=== PATIENT | female | born 1930 | race Caucasian/White ===

== ENCOUNTER 2020-03-23 11:45 | Emergency (ER) | payer OTHER ==
[~2020-03-23] VITALS: Ht 160 cm; Wt 49.6 kg
--- NOTE | 2020-03-23 11:45 | NUR ---
PT BROUGHT IN BE [facility] FROM 10 FOR CHIEF COMPLAINT OF STROKE LIKE SYMPTOMS- SLURRED SPEECH & EXPRESSICE APHASIA STARTING BETWEEN 4-6 AM THIS MORNING. NO DEFICITS IN STRENGTH OR SENSATION. HX AFIB AND BELLS PALSY.
--- NOTE | 2020-03-23 11:47 | NUR ---
TO CT FROM ER VIA [facility].
[2020-03-23 12:05] LABS: BASOPHILS # (AUTO) 0.04 x10^3/uL (0-0.1); BASOPHILS % (AUTO) 1 % (0-1); EOSINOPHILS # (AUTO) 0.12 x10^3/uL (0-0.4); EOSINOPHILS % (AUTO) 2 % (1-7); LYMPHOCYTES # (AUTO) 1.38 x10^3/uL (1-3.4); LYMPHOCYTES % (AUTO) 18 % (22-44); MD NO; MEAN CORPUSCULAR HEMOGLOBIN 31.2 pg (27.0-34.8); MEAN CORPUSCULAR HGB CONC 32.9 g/dL (32.4-35.8); MEAN CORPUSCULAR VOLUME 94.8 fL (80-100); MEAN PLATELET VOLUME 8.2 fL (7.4-10.4); MONOCYTES # (AUTO) 0.65 x10^3/uL (0.2-0.8); MONOCYTES % (AUTO) 9 % (2-9); NEUTROPHILS % (AUTO) 71 % (42-75); PLATELET COUNT 383 x10^3/uL (130-400); RED BLOOD COUNT 4.92 x10^6/uL (3.82-5.3); RED CELL DISTRIBUTION WIDTH 14.1 % (9.6-15.2)
[2020-03-23 12:13] LABS: PROTHROMBIN TIME 10.6 Seconds (9.6-11.5)
[2020-03-23] MEDS ORDERED: OMNIPAQUE 350 MG/ML, 75ML BOTTLE ONE (12:20)
--- NOTE | 2020-03-23 12:45 | NUR ---
CONSULT TO NEURO
[2020-03-23 13:20] VITALS: BP 139/82
--- NOTE | 2020-03-23 13:23 | NUR ---
PT RESTING IN BED
[2020-03-23] MEDS ORDERED: SODIUM CHLORIDE 0.9% 1,000ML IVBOLUS ONE (13:30)
--- NOTE | 2020-03-23 14:00 | NUR ---
Transfer to [facility] [place] discussed with pt and family.
--- NOTE | 2020-03-23 14:01 | NUR ---
REPORT TO PATRIA ESPINOZA RN
== END 2020-03-23 14:13 | disposition short-term general hospital (02) ==
LOC: MERGE 11:45 → EDBD 11:45 → ED 13:09
DX: I63.312 Cerebral infarction due to thrombosis of left middle cerebral artery (principal); I65.22 Occlusion and stenosis of left carotid artery; R47.01 Aphasia; I48.91 Unspecified atrial fibrillation; E78.5 Hyperlipidemia, unspecified; R47.81 Slurred speech
CPT/HCPCS: 36415; 70450; 70496; 70498; 80047; 85025; 85610; 85730; 93005; 99291; J7030; Q9967

== ENCOUNTER 2020-05-08 21:18 | Inpatient (IN) | payer MEDICARE, OTHER ==
[~2020-05-08] VITALS: Ht 152.4 cm; Wt 46.5 kg
--- NOTE | 2020-05-08 21:30 | NUR ---
BIBA for c/o bilateral ankle swelling and pain. Pt reports swelling for approx a week, reports hx of a fib not on anticoagulants. Pt changed into gown, attached to monitors, and provided with warm blankets. NADN, vss, call ordaz in reach, bed locked in lowest position, belongings placed in pt belonging bag
[2020-05-08] MEDS ORDERED: DILTIAZEM 5 MG/ML, 5ML ONE (21:47)
[2020-05-08] MEDS ORDERED: DILTIAZEM 5 MG/ML, 5ML IVPush ONE (22:00)
--- NOTE | 2020-05-08 22:00 | NUR ---
10 mg iv cardizem administered, HR improved from 120s to 80-90s following administration
--- NOTE | 2020-05-08 22:08 | NUR ---
Code Neuro called @ 2202 Called Neurology @ 2204 Neurology called back @ 2205
[2020-05-08 22:18] LABS: MEAN CORPUSCULAR HEMOGLOBIN 30.3 pg (27.0-34.8); MEAN CORPUSCULAR HGB CONC 32.1 g/dL (32.4-35.8); MEAN CORPUSCULAR VOLUME 94.3 fL (80-100); MEAN PLATELET VOLUME 8.4 fL (7.4-10.4); PLATELET COUNT 342 x10^3/uL (130-400); RED BLOOD COUNT 4.34 x10^6/uL (3.82-5.3); RED CELL DISTRIBUTION WIDTH 14.6 % (9.6-15.2)
[2020-05-08 22:29] LABS: INTERNATIONAL NORMALIZED RATIO 1.07 (0.93-1.1)
[2020-05-08 22:30] LABS: ALBUMIN 2.6 g/dL (3.4-5.0); ANION GAP 8 mmol/L (5-15); CHLORIDE 101 mmol/L (98-107); CREATININE 1.27 mg/dL (0.55-1.02)
[2020-05-08] MEDS ORDERED: OMNIPAQUE 350 MG/ML, 75ML BOTTLE ONE (22:30)
[2020-05-08 22:34] LABS: TROPONIN I 0.055 ng/mL (0.000-0.045)
[2020-05-08 22:47] LABS: MD YES
[2020-05-08 22:50] LABS: BAND#(MANUAL) 0.11 x10^3/uL; BANDS%(MANUAL) 1 % (0-7); EOS#(MANUAL) 2.38 x10^3/uL (0.0-0.4); EOS% (MANUAL) 22 % (1-7); LYMPH#(MANUAL) 1.19 x10^3/uL (1-3.4); LYMPHS% (MANUAL) 11 % (22-44); MONOS#(MANUAL) 0.86 x10^3/uL (0.3-2.7); MONOS% (MANUAL) 8 % (2-9); SEG#(MANUAL) 6.26 x10^3/uL (1.8-6.8); SEGS% (MANUAL) 58 % (42-75)
[2020-05-08 22:51] LABS: <PLATELET ESTIMATE> ADEQUATE; <PLT MORPHOLOGY> NORMAL PLT MORPH; <RBC MORPHOLOGY> NORMAL
--- NOTE | 2020-05-09 00:36 | NUR ---
REPORT TO SERGE FRENCH TO ASSUME CARE UPON TRANSFER
[2020-05-09 01:10] LABS: TROPONIN I 0.053 ng/mL (0.000-0.045)
[2020-05-09 01:12] VITALS: BP 121/68
[2020-05-09] MEDS: HEPARIN 5,000 UNITS/ML, 1ML SQ SCH ×3 (01:51→18:13)
[2020-05-09] MEDS: DILTIAZEM 30 MG TABLET PO SCH ×3 (01:51→14:00)
[2020-05-09 05:11] LABS: BASOPHILS # (AUTO) 0.06 x10^3/uL (0-0.1); BASOPHILS % (AUTO) 1 % (0-1); EOSINOPHILS # (AUTO) 1.35 x10^3/uL (0-0.4); EOSINOPHILS % (AUTO) 14 % (1-7); LYMPHOCYTES # (AUTO) 1.67 x10^3/uL (1-3.4); LYMPHOCYTES % (AUTO) 18 % (22-44); MD NO; MEAN CORPUSCULAR HEMOGLOBIN 30.2 pg (27.0-34.8); MEAN CORPUSCULAR VOLUME 94.3 fL (80-100); MEAN PLATELET VOLUME 8.3 fL (7.4-10.4); MONOCYTES # (AUTO) 0.62 x10^3/uL (0.2-0.8); MONOCYTES % (AUTO) 7 % (2-9); NEUTROPHILS # (AUTO) 5.72 x10^3/uL (1.8-6.8); NEUTROPHILS % (AUTO) 61 % (42-75); PLATELET COUNT 326 x10^3/uL (130-400); RED BLOOD COUNT 4.08 x10^6/uL (3.82-5.3); RED CELL DISTRIBUTION WIDTH 14.5 % (9.6-15.2)
[2020-05-09 05:21] LABS: ANION GAP 7 mmol/L (5-15); CHLORIDE 103 mmol/L (98-107); CREATININE 1.13 mg/dL (0.55-1.02)
[2020-05-09 05:26] LABS: TROPONIN I 0.044 ng/mL (0.000-0.045)
[2020-05-09] MEDS ORDERED: ATOR-2 PO (05:47)
[2020-05-09] MEDS ORDERED: LEVO25TA2 PO (05:47)
[2020-05-09] MEDS ORDERED: FLEC50TA25 PO (05:47)
[2020-05-09] MEDS ORDERED: LISI-420 PO (05:47)
[2020-05-09] MEDS ORDERED: METO25TA4 PO (05:47)
[2020-05-09] MEDS ORDERED: ASPI-191 PO (05:47)
[2020-05-09] MEDS ORDERED: LEVO25CA2 PO (05:47)
[2020-05-09 07:22] VITALS: BP 114/70
[2020-05-09] MEDS: SENNA/DOCUSATE TABLET PO SCH (08:25)
[2020-05-09 13:28] VITALS: BP 145/78
[2020-05-09] MEDS ORDERED: ASPIRIN 81 MG TABLET EC PO ONE (15:00)
[2020-05-09] MEDS ORDERED: ACETAMINOPHEN 325 MG TABLET PO PRN (15:30)
[2020-05-09] MEDS: FLECAINIDE 50MG TABLET PO SCH (21:06)
[2020-05-09] MEDS: METOPROLOL TARTRATE 25 MG TAB PO SCH (21:06)
[2020-05-09] MEDS: ATORVASTATIN 80 MG TABLET PO SCH (21:06)
[2020-05-09 21:11] VITALS: BP 158/66
[2020-05-10 00:50] VITALS: BP 145/75
[2020-05-10] MEDS: HEPARIN 5,000 UNITS/ML, 1ML SQ SCH ×3 (01:41→18:28)
[2020-05-10 04:06] VITALS: BP 138/79
[2020-05-10] MEDS: LEVOTHYROXINE 25 MCG TABLET PO SCH (05:34)
[2020-05-10 07:31] VITALS: BP 134/89
--- NOTE | 2020-05-10 07:37 | NUR ---
Patient would benefit from ongoing skilled OIL SCOUT services in SNF Addendum: 05/10/20 at 0737 by VANESSA RUIZ Amended: Links added.
[2020-05-10 09:38] VITALS: BP 113/70
[2020-05-10] MEDS: FLECAINIDE 50MG TABLET PO SCH ×2 (09:41→21:27)
[2020-05-10] MEDS: METOPROLOL TARTRATE 25 MG TAB PO SCH ×2 (09:42→21:29)
[2020-05-10] MEDS: SENNA/DOCUSATE TABLET PO SCH (09:43)
[2020-05-10] MEDS: LISINOPRIL 20 MG TABLET PO SCH (09:43)
[2020-05-10] MEDS: ASPIRIN 81 MG TABLET CHEW PO SCH (11:36)
[2020-05-10 12:54] VITALS: BP 104/69
[2020-05-10 18:55] VITALS: BP 99/65
[2020-05-10] MEDS: ATORVASTATIN 80 MG TABLET PO SCH (21:27)
[2020-05-11 00:40] VITALS: BP 143/91
[2020-05-11] MEDS: HEPARIN 5,000 UNITS/ML, 1ML SQ SCH ×3 (02:43→18:09)
[2020-05-11] MEDS: LEVOTHYROXINE 25 MCG TABLET PO SCH (06:08)
[2020-05-11 07:19] VITALS: BP 133/82
[2020-05-11] MEDS: FLECAINIDE 50MG TABLET PO SCH ×2 (10:24→21:21)
[2020-05-11] MEDS: SENNA/DOCUSATE TABLET PO SCH (10:25)
[2020-05-11] MEDS: CLOPIDOGREL 75 MG TABLET PO SCH (10:25)
[2020-05-11] MEDS: ASPIRIN 81 MG TABLET CHEW PO SCH (10:25)
[2020-05-11] MEDS: LISINOPRIL 20 MG TABLET PO SCH (10:25)
[2020-05-11 10:27] VITALS: BP 106/68
[2020-05-11 12:36] VITALS: BP 112/67
[2020-05-11 14:01] VITALS: BP 139/92
[2020-05-11 20:55] VITALS: BP 125/73
[2020-05-11] MEDS: METOPROLOL TARTRATE 25 MG TAB PO SCH (21:21)
[2020-05-11] MEDS: ATORVASTATIN 80 MG TABLET PO SCH (21:21)
[2020-05-12 02:01] VITALS: BP 114/69
[2020-05-12] MEDS: HEPARIN 5,000 UNITS/ML, 1ML SQ SCH ×3 (02:36→18:22)
[2020-05-12 06:06] LABS: ALANINE AMINOTRANSFERASE 231 U/L (12-78); ALBUMIN 2.1 g/dL (3.4-5.0); ANION GAP 6 mmol/L (5-15); CALCIUM 8.7 mg/dL (8.5-10.1); CHLORIDE 104 mmol/L (98-107); CREATININE 0.83 mg/dL (0.55-1.02)
[2020-05-12 06:08] LABS: ALKALINE PHOSPHATASE 499 U/L (45-117); BILIRUBIN,TOTAL 1.2 mg/dL (0.2-1.0); TOTAL PROTEIN 5.9 g/dL (6.4-8.2)
[2020-05-12] MEDS: LEVOTHYROXINE 25 MCG TABLET PO SCH (06:15)
[2020-05-12 07:51] VITALS: BP 127/79
[2020-05-12] MEDS: CLOPIDOGREL 75 MG TABLET PO SCH (09:00)
[2020-05-12] MEDS: SENNA/DOCUSATE TABLET PO SCH (10:26)
[2020-05-12] MEDS: FLECAINIDE 50MG TABLET PO SCH ×2 (10:27→20:52)
[2020-05-12] MEDS: METOPROLOL TARTRATE 25 MG TAB PO SCH ×2 (10:27→20:52)
[2020-05-12] MEDS: LISINOPRIL 20 MG TABLET PO SCH (10:27)
[2020-05-12] MEDS: ASPIRIN 81 MG TABLET CHEW PO SCH (10:27)
[2020-05-12] MEDS: POTASSIUM CHLORIDE 20 MEQ TAB.ER.PRT PO SCH (11:12)
[2020-05-12 13:43] VITALS: BP 116/74
[2020-05-12 19:42] VITALS: BP 125/77
[2020-05-13 00:18] VITALS: BP 129/81
[2020-05-13] MEDS: HEPARIN 5,000 UNITS/ML, 1ML SQ SCH ×3 (02:24→17:13)
[2020-05-13 05:07] LABS: MEAN CORPUSCULAR HEMOGLOBIN 30.3 pg (27.0-34.8); MEAN CORPUSCULAR VOLUME 94.4 fL (80-100); MEAN PLATELET VOLUME 8.3 fL (7.4-10.4); PLATELET COUNT 327 x10^3/uL (130-400); RED BLOOD COUNT 4.12 x10^6/uL (3.82-5.3); RED CELL DISTRIBUTION WIDTH 14.6 % (9.6-15.2)
[2020-05-13 05:18] LABS: ALBUMIN 2.2 g/dL (3.4-5.0); ANION GAP 7 mmol/L (5-15); CALCIUM 8.7 mg/dL (8.5-10.1); CHLORIDE 104 mmol/L (98-107)
[2020-05-13 05:22] LABS: ALANINE AMINOTRANSFERASE 273 U/L (12-78); ALKALINE PHOSPHATASE 522 U/L (45-117)
[2020-05-13 05:50] LABS: MD YES
[2020-05-13 05:52] LABS: LYMPH#(MANUAL) 1.63 x10^3/uL (1-3.4); LYMPHS% (MANUAL) 19 % (22-44); MONOS#(MANUAL) 0.34 x10^3/uL (0.3-2.7); MONOS% (MANUAL) 4 % (2-9); MYELOCYTES# (MANUAL) 2.24 x10^3/uL (0-0); MYELOCYTES% (MANUAL) 26 % (0-0); SEG#(MANUAL) 4.39 x10^3/uL (1.8-6.8); SEGS% (MANUAL) 51 % (42-75)
[2020-05-13 05:53] LABS: <PLATELET ESTIMATE> ADEQUATE; <PLT MORPHOLOGY> NORMAL PLT MORPH; <RBC MORPHOLOGY> NORMAL
[2020-05-13] MEDS: LEVOTHYROXINE 25 MCG TABLET PO SCH (06:09)
[2020-05-13 07:03] VITALS: BP 115/79
[2020-05-13] MEDS: CLOPIDOGREL 75 MG TABLET PO SCH (08:31)
[2020-05-13] MEDS: ASPIRIN 81 MG TABLET CHEW PO SCH (08:31)
[2020-05-13] MEDS: METOPROLOL TARTRATE 25 MG TAB PO SCH ×2 (08:31→20:31)
[2020-05-13] MEDS: LISINOPRIL 20 MG TABLET PO SCH (08:31)
[2020-05-13] MEDS: POTASSIUM CHLORIDE 20 MEQ TAB.ER.PRT PO SCH (08:32)
[2020-05-13] MEDS: SENNA/DOCUSATE TABLET PO SCH (08:32)
[2020-05-13] MEDS: FLECAINIDE 50MG TABLET PO SCH ×2 (08:32→20:31)
[2020-05-13] MEDS ORDERED: INSTRUCTION SEE COMMENTS XX PRN (10:00)
[2020-05-13] MEDS ORDERED: PHARMACY INSTRUCTION MC PRN (10:00)
[2020-05-13 12:22] LABS: INTERNATIONAL NORMALIZED RATIO 0.99 (0.93-1.1); PROTHROMBIN TIME 10.2 Seconds (9.6-11.5)
[2020-05-13 13:27] VITALS: BP 129/78
[2020-05-13 18:11] VITALS: BP 113/68
[2020-05-13] MEDS: MELATONIN 3 MG TABLET PO SCH (20:31)
[2020-05-14 00:30] VITALS: BP 115/73
[2020-05-14] MEDS: HEPARIN 5,000 UNITS/ML, 1ML SQ SCH ×2 (02:07→08:33)
[2020-05-14 05:31] LABS: ALANINE AMINOTRANSFERASE 276 U/L (12-78); ALBUMIN 2.2 g/dL (3.4-5.0); ANION GAP 6 mmol/L (5-15); CALCIUM 8.7 mg/dL (8.5-10.1); CHLORIDE 102 mmol/L (98-107)
[2020-05-14 05:33] LABS: ALKALINE PHOSPHATASE 501 U/L (45-117); BILIRUBIN,TOTAL 0.8 mg/dL (0.2-1.0); TOTAL PROTEIN 6.1 g/dL (6.4-8.2)
[2020-05-14] MEDS: LEVOTHYROXINE 25 MCG TABLET PO SCH (05:54)
[2020-05-14 07:15] VITALS: BP 153/71
[2020-05-14] MEDS: CLOPIDOGREL 75 MG TABLET PO SCH (08:31)
[2020-05-14] MEDS: METOPROLOL TARTRATE 25 MG TAB PO SCH ×2 (08:31→21:47)
[2020-05-14] MEDS: LISINOPRIL 20 MG TABLET PO SCH (08:31)
[2020-05-14] MEDS: SENNA/DOCUSATE TABLET PO SCH (08:32)
[2020-05-14] MEDS: POTASSIUM CHLORIDE 20 MEQ TAB.ER.PRT PO SCH (08:32)
[2020-05-14] MEDS: ASPIRIN 81 MG TABLET CHEW PO SCH (08:32)
[2020-05-14] MEDS: FLECAINIDE 50MG TABLET PO SCH ×2 (08:32→21:47)
[2020-05-14] MEDS ORDERED: ENOXAPARIN 40 MG/0.4 ML SQ SCH (10:00)
[2020-05-14] MEDS ORDERED: METO25TA35 PO (11:15)
[2020-05-14] MEDS ORDERED: CLOP75TA PO (11:15)
[2020-05-14] MEDS ORDERED: ASPI-191 PO (11:26)
[2020-05-14 14:15] VITALS: BP 119/74
[2020-05-14 18:35] VITALS: BP 129/83
[2020-05-14] MEDS: MELATONIN 3 MG TABLET PO SCH (21:47)
[2020-05-14] MEDS: ENOXAPARIN 30 MG/0.3 ML SQ SCH (21:47)
[2020-05-15 00:15] VITALS: BP 131/75
[2020-05-15] MEDS: LEVOTHYROXINE 25 MCG TABLET PO SCH (06:08)
[2020-05-15 08:00] VITALS: BP 145/73
[2020-05-15 08:48] VITALS: BP 147/83
[2020-05-15] MEDS: FLECAINIDE 50MG TABLET PO SCH (09:25)
[2020-05-15] MEDS: ASPIRIN 81 MG TABLET CHEW PO SCH (09:25)
[2020-05-15] MEDS: METOPROLOL TARTRATE 25 MG TAB PO SCH (09:26)
[2020-05-15] MEDS: LISINOPRIL 20 MG TABLET PO SCH (09:26)
[2020-05-15] MEDS: CLOPIDOGREL 75 MG TABLET PO SCH (09:26)
[2020-05-15] MEDS: SENNA/DOCUSATE TABLET PO SCH (09:27)
[2020-05-15 12:25] LABS: ALANINE AMINOTRANSFERASE 317 U/L (12-78); ALBUMIN 2.3 g/dL (3.4-5.0); ANION GAP 7 mmol/L (5-15); CALCIUM 8.6 mg/dL (8.5-10.1); CHLORIDE 98 mmol/L (98-107)
[2020-05-15 12:27] LABS: ALKALINE PHOSPHATASE 483 U/L (45-117); BILIRUBIN,TOTAL 0.9 mg/dL (0.2-1.0); TOTAL PROTEIN 6.6 g/dL (6.4-8.2)
[2020-05-15 13:50] VITALS: BP 93/59
[2020-05-15 19:25] VITALS: BP 131/82
[2020-05-15] MEDS: MELATONIN 3 MG TABLET PO SCH (19:39)
[2020-05-15] MEDS: METOPROLOL TARTRATE 50 MG TAB PO SCH (19:39)
[2020-05-15] MEDS: ENOXAPARIN 30 MG/0.3 ML SQ SCH (19:39)
[2020-05-16 00:10] VITALS: BP 148/82
[2020-05-16 04:53] VITALS: BP 124/75
[2020-05-16] MEDS: LEVOTHYROXINE 25 MCG TABLET PO SCH (04:55)
[2020-05-16 07:42] VITALS: BP 120/71
[2020-05-16] MEDS: ASPIRIN 81 MG TABLET CHEW PO SCH (08:05)
[2020-05-16] MEDS: CLOPIDOGREL 75 MG TABLET PO SCH (08:05)
[2020-05-16] MEDS: METOPROLOL TARTRATE 50 MG TAB PO SCH (08:06)
[2020-05-16] MEDS: SENNA/DOCUSATE TABLET PO SCH (08:06)
[2020-05-16] MEDS: LISINOPRIL 20 MG TABLET PO SCH (08:06)
[2020-05-16] MEDS ORDERED: METO50TA82 PO (10:27)
[2020-05-16 13:30] VITALS: BP 130/62
== END 2020-05-16 16:14 | DRG 64 ==
LOC: ED 05-09 00:05 → EDIP 05-09 00:18 → 5SO 05-09 01:00
PROVIDERS: ADMIT Family Medicine; ATTEND Internal Medicine
DX: I63.9 Cerebral infarction, unspecified (principal); N17.0 Acute kidney failure with tubular necrosis; I13.0 Hypertensive heart and chronic kidney disease with heart failure and stage 1 through stage 4 chronic kidney disease, or unspecified chronic kidney disease; I48.92 Unspecified atrial flutter; I48.20 Chronic atrial fibrillation, unspecified; E87.1 Hypo-osmolality and hyponatremia; I24.8 Other forms of acute ischemic heart disease; I48.91 Unspecified atrial fibrillation; R53.1 Weakness; I50.9 Heart failure, unspecified; N18.9 Chronic kidney disease, unspecified; E03.9 Hypothyroidism, unspecified; E78.5 Hyperlipidemia, unspecified; M25.579 Pain in unspecified ankle and joints of unspecified foot; I65.23 Occlusion and stenosis of bilateral carotid arteries; K80.20 Calculus of gallbladder without cholecystitis without obstruction; Z91.81 History of falling; Z86.73 Personal history of transient ischemic attack (TIA), and cerebral infarction without residual deficits; W18.39XA Other fall on same level, initial encounter; Y93.89 Activity, other specified; Y92.89 Other specified places as the place of occurrence of the external cause; Y99.8 Other external cause status; Z79.82 Long term (current) use of aspirin; Z79.899 Other long term (current) drug therapy; E87.70 Fluid overload, unspecified; Z68.20 Body mass index [BMI] 20.0-20.9, adult
CPT/HCPCS: 36415; 70450; 70496; 70498; 70551; 71045; 76700; 80048; 80053; 82040; 82140; 82962; 83605; 83880; 84443; 84484; 85025; 85610; 85730; 86704; 86706; 86708; 86803; 87340; 93005; 93306; 96374; 99291; G0378; J1644; J1650; Q9967; 92523-GN

== ENCOUNTER 2020-06-15 08:19 | Emergency (ER) | payer MEDICARE, OTHER ==
[~2020-06-15] VITALS: Ht 167.6 cm; Wt 50.1 kg
[~2020-06-15 08:19] MED LIST: ASPI-191 PO; ATOR-2 PO; CLOP75TA PO; FLEC50TA25 PO; LEVO25CA2 PO; LEVO25TA2 PO; LISI-420 PO; METO25TA35 PO; METO25TA4 PO; METO50TA82 PO
[2020-06-15] MEDS ORDERED: SODIUM CHLORIDE 0.9% 1,000ML IVBOLUS ONE (08:30)
[2020-06-15] MEDS ORDERED: SODIUM CHLORIDE FLUSH 10ML SYR IVF ONE (08:30)
[2020-06-15 08:57] LABS: BASOPHILS % (AUTO) 0 % (0-1); EOSINOPHILS % (AUTO) 0 % (1-7); LYMPHOCYTES % (AUTO) 7 % (22-44); MEAN CORPUSCULAR HEMOGLOBIN 29.7 pg (27.0-34.8); MEAN CORPUSCULAR HGB CONC 33.3 g/dL (32.4-35.8); MEAN PLATELET VOLUME 7.3 fL (7.4-10.4); MONOCYTES % (AUTO) 3 % (2-9); NEUTROPHILS % (AUTO) 89 % (42-75); PLATELET COUNT 390 x10^3/uL (130-400); RED BLOOD COUNT 4.26 x10^6/uL (3.82-5.3)
[2020-06-15] MEDS ORDERED: PLEASE ENTER HEIGHT AND WEIGHT MC SCH (09:00)
[2020-06-15] MEDS ORDERED: ACETAMINOPHEN 650 MG SUPP PR PRN (09:00)
[2020-06-15] MEDS ORDERED: ACETAMINOPHEN 650 MG SUPP ONE (09:05)
[2020-06-15 09:09] LABS: ALANINE AMINOTRANSFERASE 48 U/L (12-78); ALBUMIN 1.9 g/dL (3.4-5.0); ANION GAP 8 mmol/L (5-15); CALCIUM 9.1 mg/dL (8.5-10.1); CHLORIDE 104 mmol/L (98-107); CREATININE 0.94 mg/dL (0.55-1.02)
[2020-06-15 09:11] LABS: ALKALINE PHOSPHATASE 201 U/L (45-117); BILIRUBIN,TOTAL 0.5 mg/dL (0.2-1.0); TOTAL PROTEIN 6.6 g/dL (6.4-8.2)
[2020-06-15 09:22] LABS: RAPID INFLUENZA A Negative (Negative); RAPID INFLUENZA B Negative (Negative)
[2020-06-15] MEDS ORDERED: CEFTRIAXONE PMX 1GM/50ML 50 ML IV ONE (09:30)
[2020-06-15 09:34] LABS: MD SCAN
[2020-06-15] MEDS ORDERED: MULT-321 PO (09:45)
[2020-06-15] MEDS ORDERED: CHOL-1 PO (09:48)
[2020-06-15] MEDS ORDERED: ZINC50TA10 PO (09:49)
[2020-06-15] MEDS ORDERED: FAMO-79 PO (09:49)
[2020-06-15] MEDS ORDERED: CEFTRIAXONE PMX 1GM/50ML 50 ML ONE (09:53)
--- NOTE | 2020-06-15 09:57 | NUR ---
PT BIB EMS FROM [place] WITH A FEVER OF 103.9 RECTALLY, ALTERED, NON-VERBAL, TACHYPNEIC AND TACHYCARDIC WITH RESPIRATORY DISTRESS. PIV STARTED AND BLOOD DRAWN FOR CULTURES AND LABS. NS BOLUS GIVEN AND TYLENOL 975MG GA GIVEN. HEART RATE IS IMPROVING AND DOWN TO AROUND 120 FROM 160BPM, INITIALLY. ROCEPHIN STARTED FOR EMPERIC TREATMENT ORDERED BY DR. RUELAS. RAPID COVID SWAB AND FLU SWABS COLLECTED AND SENT TO LAB.
[2020-06-15 10:23] LABS: D-DIMER (DIC) 2.14 ug/mlFEU (0.00-0.52)
[2020-06-15 10:28] LABS: PROTIME 10.2 Seconds (9.6-11.5)
[2020-06-15 10:31] LABS: C-REACTIVE PROTEIN, QUANT > 19.00 mg/dL (0.02-0.49)
--- NOTE | 2020-06-15 11:12 | NUR ---
PHARMACY REQUEST SLIP SENT FOR VIBRAMYCIN IV.
[2020-06-15] MEDS: DOXYCYCLINE 100 MG in DEXTROSE 5% 250 ML IV SCH (12:03)
--- NOTE | 2020-06-15 12:03 | NUR ---
IV DOXYCYCLINE STARTED.
--- NOTE | 2020-06-15 12:11 | NUR ---
SBAR HAND-OFF REPORT GIVEN TO GILLIAN LAMBERT.
--- NOTE | 2020-06-15 13:15 | NUR ---
PT RESTING IN BED. CALL LIGHT IN REACH
--- NOTE | 2020-06-15 16:08 | NUR ---
TASK RN: PT RESTING ON SILVERTrisha FULLER. Addendum: 06/15/20 at 1609 by JANESSA PT MOVED FROM [facility] TO HOSPITAL BED.
--- NOTE | 2020-06-15 18:04 | NUR ---
PT RESTING IN BED. CALL LIGHT IN REACH
[2020-06-15] MEDS ORDERED: DEXAMETHASONE 4 MG/ML, 1ML IV SCH (19:00)
[2020-06-15] MEDS ORDERED: LABETALOL 5MG/ML, 20ML IVPush PRN (19:00)
[2020-06-15] MEDS ORDERED: POTASSIUM CHLORIDE 40 MEQ in SODIUM CHLORIDE 0.9% 500 ML IV ONE (19:00)
[2020-06-15] MEDS ORDERED: D5%-LR+KCL 20MEQ 1,000 ML IV SCH (19:00)
[2020-06-15] MEDS ORDERED: Enoxaparin 1 mg/kg protocol SQ SCH (19:00)
[2020-06-15] MEDS ORDERED: ACETAMINOPHEN 325 MG TABLET PO PRN (19:00)
[2020-06-15] MEDS ORDERED: VANCOMYCIN PER PHARMACY MC PRN (19:00)
[2020-06-15] MEDS ORDERED: ONDANSETRON 2MG/ML, 2ML IVPush PRN (19:00)
--- NOTE | 2020-06-15 19:30 | NUR ---
REPORT RECEIVED FROM MASON FRENCH
[2020-06-15] MEDS ORDERED: PHARMACOKINETIC MONITORING MC PRN (20:00)
[2020-06-15] MEDS ORDERED: PHARMACOKINETIC CONSULTATION MC ONE (20:00)
[2020-06-15] MEDS ORDERED: VANCOMYCIN 1,200 MG in SODIUM CHLORIDE 0.9% 250 ML IV ONE (20:00)
[2020-06-15] MEDS ORDERED: ENOXAPARIN 40 MG/0.4 ML ONE (20:03)
[2020-06-15] MEDS ORDERED: PIPERACILLIN/TAZO/PMX 3.375GM 50 ML ONE (20:03)
[2020-06-15] MEDS ORDERED: DEXAMETHASONE 4 MG/ML, 1ML ONE (20:03)
--- NOTE | 2020-06-15 20:07 | NUR ---
per [place] in pharmacy for lovenox give 60mg for lovenox since jayce says to round up to nearest dose = 60mg. order repeated for verification with pharmacy.
[2020-06-15] MEDS ORDERED: METOPROLOL 1 MG/ML, 5ML ONE (20:09)
[2020-06-15] MEDS ORDERED: ENOXAPARIN 60 MG/0.6 ML ONE (20:09)
[2020-06-15] MEDS: METOPROLOL 1 MG/ML, 5ML IVPush SCH (20:11)
[2020-06-15] MEDS: PIPERACILLIN/TAZO/PMX 3.375GM 50 ML IV SCH (20:13)
--- NOTE | 2020-06-15 20:21 | NUR ---
PT RESTING IN HOSPITAL BED, WILL OPEN EYES BUT IS NON VERBAL. WILL OCCASSIONALLY MAKE GRUNTING LIKE NOISES AND WILL SHAKE HEAD YES AND NO. SHAKES HEAD NO WHEN ASKED IF SHE HAS ANY PAIN. WILL CONTINUE TO MONITOR
--- NOTE | 2020-06-15 22:36 | NUR ---
LARGE WOUND ON RIGHT FOREARM, FORMER BANDAGE THAT WAS APPLIED PRIOR TO ARRIVAL TAKEN OFF AND CLEANSED WITH WOUND CLEANSER. HYDROGEL, ADAPTIC, AND NO STING TO SURROUNDING SKIN APPLIED AND DRESSED WITH KERLEX.
--- NOTE | 2020-06-15 23:30 | NUR ---
PT RESTING IN HOSPITAL BED, WOUND CARE GIVEN TO ARM, CALAZIME CREAM APPLIED TO BUTTOCK FOR BLANCHABLE REDNESS, NO SKIN BREAKDOWN NOTED. VSS
[2020-06-16] MEDS: DOXYCYCLINE 100 MG in DEXTROSE 5% 250 ML IV SCH (00:08)
[2020-06-16] MEDS ORDERED: ALBUTEROL HFA 90 MCG/SPRAY INH PRN (00:30)
--- NOTE | 2020-06-16 00:30 | NUR ---
PT RESTING COMFORTABLY IN HOSPITAL BED. CONTINUES TO BE NON VERBAL
--- NOTE | 2020-06-16 01:30 | NUR ---
PT RESTING COMFORTABLY IN HOSPITAL BED. Q2H TURNS, VSS
[2020-06-16] MEDS ORDERED: METOPROLOL 1 MG/ML, 5ML ONE (03:04)
[2020-06-16] MEDS: METOPROLOL 1 MG/ML, 5ML IVPush SCH (03:07)
[2020-06-16] MEDS: PIPERACILLIN/TAZO/PMX 3.375GM 50 ML IV SCH (04:00)
[2020-06-16] MEDS ORDERED: PIPERACILLIN/TAZO/PMX 3.375GM 50 ML ONE (04:39)
[2020-06-16 04:50] LABS: MICROSCOPIC INDICATED
--- NOTE | 2020-06-16 04:51 | NUR ---
PT STRAIGHT CATH FOR UA USING STERILE TECHNIQUE AND THEN PLACED ON PUREWICK. Q2H TURNS IN PLACE, CALAZIME CREAM ON BOTTOM.
--- NOTE | 2020-06-16 04:53 | NUR ---
Eleanor rowland in ED - 06/16/20 at 0545 by KRISTINA PT AWAKE WITH RESTLESS LEG, SINEMET NOT IN OMNICELL, MEDICATION REQUEST SENT TO PHARMACY AND PT UPDATED ON POC
[2020-06-16 05:11] LABS: BASOPHILS % (AUTO) 0 % (0-1); EOSINOPHILS % (AUTO) 0 % (1-7); LYMPHOCYTES % (AUTO) 7 % (22-44); MEAN CORPUSCULAR HEMOGLOBIN 29.8 pg (27.0-34.8); MEAN CORPUSCULAR HGB CONC 33.2 g/dL (32.4-35.8); MEAN PLATELET VOLUME 7.7 fL (7.4-10.4); MONOCYTES % (AUTO) 3 % (2-9); NEUTROPHILS % (AUTO) 91 % (42-75); PLATELET COUNT 372 x10^3/uL (130-400); RED BLOOD COUNT 4.18 x10^6/uL (3.82-5.3); RED CELL DISTRIBUTION WIDTH 15.4 % (9.6-15.2)
[2020-06-16 05:25] LABS: CHLORIDE 107 mmol/L (98-107)
[2020-06-16 05:27] LABS: MD NO
[2020-06-16] MEDS ORDERED: D5%-LR+KCL 20MEQ 1,000 ML IV SCH (05:30)
[2020-06-16 05:31] LABS: D-DIMER 2.34 ug/mlFEU (0.00-0.52)
[2020-06-16 05:38] LABS: ALANINE AMINOTRANSFERASE 37 U/L (12-78); ALBUMIN 1.7 g/dL (3.4-5.0); ALKALINE PHOSPHATASE 169 U/L (45-117); ANION GAP 6 mmol/L (5-15); BILIRUBIN,TOTAL 0.5 mg/dL (0.2-1.0); CALCIUM 8.6 mg/dL (8.5-10.1); CREATININE 0.78 mg/dL (0.55-1.02); FREE T4 (FREE THYROXINE) 1.33 ng/dL (0.76-1.46)
[2020-06-16 05:42] VITALS: BP 135/78
[2020-06-16 05:45] LABS: HCT (SEDRATE) 37.6 % (34.6-47.8)
--- NOTE | 2020-06-16 05:45 | NUR ---
PT ON HOSPITAL BED, Q2H TURNS IN PLACE. PTS EYE ARE OPEN HOWEVER PT STILL MAKING INCOHERENT SOUNDS. SOMETIMES CAN SAY YES AND NO.
[2020-06-16] MEDS ORDERED: ONDANSETRON 2MG/ML, 2ML IVPush PRN (07:00)
[2020-06-16] MEDS ORDERED: MORPHINE SULFATE 4 MG/ML, 1ML IVPush PRN (07:00)
[2020-06-16] MEDS ORDERED: MORPHINE 30MG/30ML PCA.SYR IV PRN (07:00)
[2020-06-16] MEDS ORDERED: LORazepam 2 MG/ML, 1ML IVPush PRN (07:00)
[2020-06-16] MEDS ORDERED: SCOPOLAMINE 1MG PATCH TD SCH (07:00)
[2020-06-16] MEDS ORDERED: ATROPINE OPHTH SOLN 1%, 5ML PO PRN (07:00)
[2020-06-16] MEDS ORDERED: ONDANSETRON 2MG/ML, 2ML ONE (07:02)
[2020-06-16] MEDS ORDERED: LORazepam 2 MG/ML, 1ML ONE (07:03)
[2020-06-16] MEDS ORDERED: MORPHINE SULFATE 4 MG/ML, 1ML ONE (07:03)
--- NOTE | 2020-06-16 07:09 | NUR ---
DR NIETO IN TO SEE PT AND TALK WITH FAMILY. PT MADE COMFORT CARE. MEDICATED PER EMAR, WARM BLANKETS GIVEN. FAMILY IS ON WAY TO SEE PT.
[2020-06-16] MEDS ORDERED: PANTOPRAZOLE 40 MG IV IVPush SCH (07:30)
--- NOTE | 2020-06-16 07:32 | NUR ---
Report recieved from sheila riggins.
--- NOTE | 2020-06-16 08:37 | NUR ---
Pt resting in bed, comfort measures in place.
[2020-06-16] MEDS ORDERED: LORazepam 2 MG/ML, 1ML IVPush SCH (09:00)
--- NOTE | 2020-06-16 10:02 | NUR ---
Family at bedside, updated on poc
--- NOTE | 2020-06-16 13:20 | NUR ---
TIME OF 1215, FAMILY NOTIFIED, SEE PAPER CHARTING
[2020-06-17] MEDS ORDERED: VANCOMYCIN PMX 1GM/200ML 200 ML IV SCH (10:00)
== END 2020-06-16 15:12 | disposition expired ==
LOC: ED 09:38 → EDIP 09:41 → UNDOADMIN 09:41 → ED 06-16 15:12
DX: U07.1 COVID-19 (principal); A41.9 Sepsis, unspecified organism; R65.20 Severe sepsis without septic shock; J96.91 Respiratory failure, unspecified with hypoxia; J15.9 Unspecified bacterial pneumonia; I48.20 Chronic atrial fibrillation, unspecified; Z86.73 Personal history of transient ischemic attack (TIA), and cerebral infarction without residual deficits
CPT/HCPCS: 36415; 36600; 71045; 80053; 81001; 82728; 82803; 83605; 83615; 83735; 83880; 84100; 84145; 84439; 84443; 85025; 85049; 85379; 85384; 85610; 85651; 85730; 86140; 87040; 87400; 87635; 93005; 96361; 96365; 96366; 96367; 96368; 96372; 96375; 99291; J0696; J1100; J2060; J2270; J2543; J3370; J3480; J7030; J7040; J7050; J7060; 96376